=== PATIENT | female | born 1945 | race Hispanic/Latino ===

== ENCOUNTER 2019-02-14 17:00 | Inpatient (IN) | payer MEDICARE ==
--- NOTE | 2019-02-14 18:08 | C.PDOC ---
History Of Present Illness 73 y/o female presents to the ER complaining of worsening left facial redness and left ear pain since yesterday. Patient states that the redness started initially on left outer ear since yesterday. Patient reports that she had some m ild itching. She notes that she took Benadryl and Claritin last night. She states that she has increased redness on left face. She notes that she has increased swelling and fullness on face on top of ear. Denies having hearing changes, discharge, fever, chills, and trauma. <Raissa Hagan - Last Filed: 02/14/19 18:48> History Per: Patient History/Exam Limitations: no limitations Onset/Duration Of Symptoms: Days Current Symptoms Are (Timing): Still Present Severity: Moderate <Raissa Hagan - Last Filed: 02/14/19 18:48> <Enid Crockett - Last Filed: 02/14/19 22:12> Time Seen by Provider: 02/14/19 17:48 Chief Complaint (Nursing): Abnormal Skin Integrity Past Medical History Reviewed: Historical Data, Nursing Documentation, Vital Signs Vital Signs: Last Vital Signs Temp 100.1 F H 02/14/19 17:25 Pulse 81 02/14/19 17:25 Resp 20 02/14/19 17:25 BP 126/74 02/14/19 17:25 Pulse Ox 98 02/14/19 17:25 - Medical History PMH: No Chronic Diseases Surgical History: Appendectomy, Tonsillectomy Family History: States: No Known Family Hx - Social History Hx Alcohol Use: No Hx Substance Use: No <BentleyRiassa - Last Filed: 02/14/19 18:48> Vital Signs: Last Vital Signs Temp 98.6 F 02/14/19 21:34 Pulse 75 02/14/19 21:34 Resp 15 02/14/19 21:34 BP 154/68 H 02/14/19 21:34 Pulse Ox 96 02/14/19 21:34 <Enid Crockett - Last Filed: 02/14/19 22:12> Review Of Systems Except As Marked, All Systems Reviewed And Found Negative. Constitutional: Negative for: Fever, Chills ENT: Positive for: Other (left ear erythema) <Raissa Hagan - Last Filed: 02/14/19 18:48> Physical Exam - Physical Exam Appears: Non-toxic Skin: Warm, Dry Head: Normacephalic, Other (mild erythema and edema to left temporal and lateral maxillary area, mild edema, hot, blanching, no vesicles; no focal tenderness to mastoid area, no nodes, no angoioedema) Eye(s): bilateral: Normal Inspection Ear(s): Left: Other (mild erythema and edema in the externally behind ear onto mastoid area), Right: Normal Nose: Normal Oral Mucosa: Moist Throat: Normal, No Erythema, No Exudate Neck: Supple Chest: Symmetrical Cardiovascular: Rhythm Regular Respiratory: Normal Breath Sounds, No Rales, No Rhonchi, No Wheezing Neurological/Psych: Oriented x3, Normal Speech <Raissa Hagan - Last Filed: 02/14/19 18:48> ED Course And Treatment O2 Sat by Pulse Oximetry: 98 (RA) Pulse Ox Interpretation: Normal <Raissa Hagan - Last Filed: 02/14/19 18:48> - Laboratory Results Result Diagrams: 02/14/19 19:01 02/14/19 19:01 Lab Results: pO2 25 mm/Hg (30-55) L 02/14/19 18:30 VBG pH 7.35 (7.32-7.43) 02/14/19 18:30 VBG pCO2 36 mmHg (40-60) L 02/14/19 18:30 VBG HCO3 19.4 mmol/L 02/14/19 18:30 VBG Total CO2 21.0 mmol/L (22-28) L 02/14/19 18:30 VBG O2 Sat (Calc) 52.0 % (40-65) 02/14/19 18:30 VBG Base Excess -5.1 mmol/L (0.0-2.0) L 02/14/19 18:30 VBG Potassium 3.4 mmol/L (3.6-5.2) L 02/14/19 18:30 Sodium 132.0 mmol/l (132-148) 02/14/19 18:30 Chloride 102.0 mmol/L (98-107) 02/14/19 18:30 Glucose 211 mg/dl (65-105) H 02/14/19 18:30 Lactate 1.0 mmol/L (0.7-2.1) 02/14/19 18:30 FiO2 21.0 % 04/09/19 18:30 Total Bilirubin 0.5 mg/dL (0.2-1.3) 02/14/19 19:01 AST 27 U/L (14-36) 02/14/19 19:01 ALT 7 U/L (9-52) L 02/14/19 19:01 Alkaline Phosphatase 98 U/L (38-126) 02/14/19 19:01 Total Protein 7.7 g/dL (6.3-8.3) 02/14/19 19:01 Albumin 4.4 g/dL (3.5-5.0) 02/14/19 19: Globulin 3.2 gm/dL (2.2-3.9) 02/14/19 19: Albumin/Globulin Ratio 1.4 (1.0-2.1) 02/14/19 19:01 <Enid Crockett - Last Filed: 02/14/19 22:12> Disposition - Disposition Disposition Time: 19:00 <Raissa Hagan - Last Filed: 02/14/19 18:48> Discussed With : Alisha Macias Comment: accepted the pt onhis service and took over the care at 10:11 PM Doctor Will See Patient In The: Hospital Counseled Patient/Family Regarding: Studies Performed, Diagnosis - POA Present On Arrival: Poor Glycemic Control <Enid Crockett - Last Filed: 02/14/19 22:12> - Disposition Disposition: HOSPITALIZED Condition: FAIR Forms: [facility] (Vietnamese) - Clinical Impression Clinical Impression: Facial erythema, Diffuse cellulitis of face - Scribe Statement The provider has reviewed the documentation as recorded by the Steffi Johnston Provider Attestation: All medical record entries made by the Nahunibe were at my direction and personally dictated by me. I have reviewed the chart and agree that the record accurately reflects my personal performance of the history, physical exam, medical decision making, and the department course for this patient. I have also personally directed, reviewed, and agree with the discharge instructions and disposition. <Raissa Hagan - Last Filed: 02/14/19 18:48> Physician Patient Turnover Patient Signed Over To: Enid Crockett Handoff Comments: FU LABS, CT, DISPO <Raissa Hagan - Last Filed: 02/14/19 18:48> Decision To Admit <Raissa Hagan - Last Filed: 02/14/19 18:48> - Pt Status Changed To: Hospital Disposition Of: Inpatient - Admit Certification Admit to Inpatient:: After my assessment, the patient will require hospitalization for at least two midnights. This is because of the severity of symptoms shown, intensity of services needed, and/or the medical risk in this patient being treated as an outpatient. - InPatient: Physician Admission Certification: I certify that this patient requires 2 or more midnights of care for the following reason:: After my assessment, the patient will require hospitalization for at least two midnights. This is because of the severity of symptoms shown, intensity of services needed, and/or the medical risk in this patient being treated as an outpatient. - . Bed Request Type: Regular Admitting Physician: Alisha Macias <Enid Crockett - Last Filed: 02/14/19 22:12> - . Patient Diagnosis: Facial erythema, Diffuse cellulitis of face
[2019-02-14] MEDS ORDERED: MethylPREDNISolone 40 mg Vial IVP STA (18:20)
[2019-02-14] MEDS ORDERED: ceFAZolin IV 1 gm in Dextrose 1 GM/50 ML BAG IVPB STA (18:21)
[2019-02-14 18:34] LABS: VENOUS BLOOD GAS BASE EXCESS -5.1 mmol/L (0.0-2.0); VENOUS BLOOD GAS PCO2 36 mmHg (40-60); VENOUS BLOOD GAS PO2 25 mm/Hg (30-55); VENOUS BLOOD PH 7.35 (7.32-7.43)
[2019-02-14] MEDS ORDERED: ceFAZolin 1 gm in NS 1 GM/100 ML BAG IVPB ONE (18:49)
[2019-02-14] MEDS ORDERED: MethylPREDNISolone 40 mg Vial ONE (18:50)
[2019-02-14 19:05] LABS: BASO # 0.1 K/uL (0.0-0.2); BASO % 0.5 % (0.0-2.0); EOS % 0.1 % (0.0-4.0); LYMPH # 1.2 K/uL (1.0-4.3); LYMPH % 9.3 % (20.0-40.0); MEAN CELL VOLUME 89.2 fL (81.0-99.0); MEAN CORPUSCULAR HGB CONC 33.6 g/dL (33.0-37.0); MEAN PLATELET VOLUME 9.8 fL (7.2-11.7); MONO # 1.1 K/uL (0.0-0.8); MONO % 8.6 % (0.0-10.0); NEUT # 10.9 K/uL (1.8-7.0); NEUT % 81.5 % (50.0-75.0); PLATELET COUNT 270 K/uL (130-400); RBC 4.68 Mil/uL (3.80-5.20); RED CELL DISTRIBUTION WIDTH 13.4 % (11.5-14.5); WHITE BLOOD COUNT 13.4 K/uL (4.8-10.8)
[2019-02-14 19:19] LABS: ALB/GLOB RATIO 1.4 (1.0-2.1); ALBUMIN 4.4 g/dL (3.5-5.0); ALT/SGPT 7 U/L (9-52); AST/SGOT 27 U/L (14-36); BLOOD UREA NITROGEN 28 mg/dL (7-17); CALCIUM 9.6 mg/dl (8.6-10.4); GFR NON-AFRICAN AMERICAN > 60
[2019-02-14] MEDS ORDERED: Iodixanol 320 mg/ml 150 ml Bottle IV ONE (20:09)
[2019-02-14 21:39] LABS: BANDS 2 % (0-2); LYMPHOCYTE 16 % (20-40); MONOCYTE 10 % (0-10); NEUTROPHIL 72 % (50-75); PLATELET ESTIMATE NORMAL (NORMAL); TOTAL CELLS COUNTED 100
[2019-02-14] MEDS ORDERED: Vancomycin 1 GM 1 GM/250 ML BAG IVPB STA (21:57)
[2019-02-14] MEDS ORDERED: Vancomycin 1 GM 1 GM/250 ML BAG IVPB ONE (22:09)
--- NOTE | 2019-02-14 22:59 | CP.PCM.CON ---
History of Present Illness - History of Present Illness History of Present Illness: INFECTIOUS DISEASE; HPI: 73 y/o female presents to the ER complaining of worsening left facial redness and left ear pain since yesterday. Patient states that the redness started initially on left outer ear since yesterday. Patient reports that she had some mild itching. She notes that she took Benadryl and Claritin last night. She sta mireya that she has increased redness on left face. She notes that she has increased swelling and fullness on face on top of ear. Denies having hearing changes, discharge, fever, chills, and trauma. PMH: DM- 2, SCHIAZOAFFECTIVE DISORDER. Surgical History: Appendectomy, Tonsillectomy Family History: States: No Known Family Hx - Social History Hx Alcohol Use: No Hx Substance Use: No ALLERGY : CODEINE, PCN, THIOTHEXINE PT TOLERATED IV CEFAZOLIN IN ER. Review of Systems - Review of Systems All systems: reviewed and no additional remarkable complaints except ( PER HPI) - EENT Ears: As Per HPI, Other (LT EAR MILD ERYTHEMA PINNA ). absent: Decreased Hearing, Ear Discharge, Ear Pain, Abnormal Hearing, Dizziness Nose/Mouth/Throat: absent: Sinus Pain (LT FACIAL AND FOREHEAD ERYTHEMA. NO FURUNCULOSIS /OR ULCERS), Dental Pain, Dysphagia, Mouth Lesions, Mouth Pain, Sore Throat, Throat Swelling, Facial Pain - Cardiovascular Cardiovascular: absent: Dyspnea - Respiratory Respiratory: absent: Cough, Dyspnea - Gastrointestinal Gastrointestinal: absent: Abdominal Pain, Diarrhea, Nausea, Vomiting - Genitourinary Genitourinary: absent: Freq UTI - Hematologic/Lymphatic Hematologic: As Per HPI. absent: Easy Bleeding, Easy Bruising, Lymphadenopathy Past Patient History - Past Social History Smoking Status: Never Smoked - ENDOCRINE/METABOLIC Hx Endocrine Disorders: Yes Hx Diabetes Mellitus Type 2: Yes - PSYCHIATRIC Hx Substance Use: No - SURGICAL HISTORY Hx Appendectomy: Yes Hx Tonsillectomy: Yes Meds Allergies/Adverse Reactions: Allergies Allergy/AdvReac Type Severity Reaction Status Date / Time codeine Allergy Unknown UNKNOWN Verified 02/14/19 22:03 Penicillins Allergy Unknown UNKNOWN Verified 05/28/16 10:01 thiothixene [From Navane] Allergy Unknown UNKNOWN Verified 05/28/16 10:05 thiothixene HCl [From Navane] Allergy Unknown UNKNOWN Verified 05/28/16 10:05 - Medications Medications: Current Medications Vancomycin HCl (Vancomycin 1gm In Normal Saline Addvantage) 1 gm in 250 mls @ 166.667 mls/hr IVPB STAT STA; Protocol Stop: 02/14/19 23:26 Last Admin: 02/14/19 22:20 Dose: 166.667 mls/hr Ceftriaxone Sodium 1 gm/ (Sodium Chloride) 100 mls @ 100 mls/hr IVPB Q12H DEMOND; Protocol Vancomycin HCl 1 gm/ Sodium (Chloride) 250 mls @ 166.7 mls/hr IVPB Q24H DEMOND; Protocol Insulin Human Regular (Novolin R) 0 unit SC ACHS DEMOND; Protocol Physical Exam - Head Exam Head Exam: NORMAL INSPECTION - Eye Exam Eye Exam: EOMI, PERRL - ENT Exam ENT Exam: Normal Oropharynx, TM's Normal Bilaterally (SOME ERYTHEMA LT EAR PINN A/ LT FACIAL ERYTHEMA/AND CELLULITIS) - Neck Exam Neck exam: Positive for: Normal Inspection - Respiratory Exam Respiratory Exam: Clear to Auscultation Bilateral, NORMAL BREATHING PATTERN - Cardiovascular Exam Cardiovascular Exam: REGULAR RHYTHM, +S1, +S2 - GI/Abdominal Exam GI & Abdominal Exam: Normal Bowel Sounds, Soft. absent: Tenderness - Extremities Exam Extremities exam: Positive for: pedal pulses present. Negative for: calf tenderness, pedal edema, tenderness Results - Vital Signs Recent Vital Signs: Last Vital Signs Temp 98.6 F 02/14/19 21:34 Pulse 75 02/14/19 21:34 Resp 15 02/14/19 21:34 BP 154/68 H 02/14/19 21:34 Pulse Ox 96 02/14/19 21:34 - Labs Result Diagrams: 02/15/19 07:32 02/15/19 07:32 Labs: Laboratory Results - last 24 hr 02/14/19 02/14/19 02/14/19 18:30 19:01 19:01 WBC 13.4 H RBC 4.68 Hgb 14.0 Hct 41.7 MCV 89.2 MCH 30.0 MCHC 33.6 RDW 13.4 Plt Count 270 MPV 9.8 Neut % (Auto) 81.5 H Lymph % (Auto) 9.3 L [place] % (Auto) 8.6 Eos % (Auto) 0.1 Baso % (Auto) 0.5 Neut # (Auto) 10.9 H Lymph # (Auto) 1.2 [place] # (Auto) 1.1 H Eos # (Auto) 0.0 Baso # (Auto) 0.1 Neutrophils % (Manual) 72 Band Neutrophils % 2 Lymphocytes % (Manual) 16 L Monocytes % (Manual) 10 Platelet Estimate Normal pO2 25 L VBG pH 7.35 VBG pCO2 36 L VBG HCO3 19.4 VBG Total CO2 21.0 L VBG O2 Sat (Calc) 52.0 VBG Base Excess -5.1 L VBG Potassium 3.4 L Sodium 132.0 130 L Chloride 102.0 93 L Glucose 211 H Lactate 1.0 FiO2 21.0 Potassium 5.0 Carbon Dioxide 26 Anion Gap 16 BUN 28 H Creatinine 0.8 Est GFR ( Amer) > 60 Est GFR (Non-Af Amer) > 60 Random Glucose 270 H D Calcium 9.6 Total Bilirubin 0.5 AST 27 ALT 7 L Alkaline Phosphatase 98 Total Protein 7.7 Albumin 4.4 Globulin 3.2 Albumin/Globulin Ratio 1.4 Venous Blood Potassium 3.4 L - Imaging and Cardiology ct orbits/fascial w/contrast Status: Report reviewed by me Assessment & Plan (1) Diffuse cellulitis of face Assessment and Plan: PANCULTURE. MRSA SCREEN. Patient tolerated dose of cefazolin in the ER. Also got one dose of vancomycin 1 g in the ER. Doubt patient has any allergy to penicillin/cephalosporins Patient states he developed ? allergy to erythromycin once the swelling of her hand only. discussed with the staff. Continue IV vancomycin 1 g once a day daily. 02/14/19. Start IV Rocephin 1 g every 12 hourly-first dose at 6 AM in the morning. asked staff nurse to monitor for any rashes or any other pruritus secondary to ANCEF DOSE . FOLLOW-UP CULTURES TO ADJUST ANTIBIOTICS. Status: Acute (2) Facial erythema Assessment and Plan: WILL REVIEW THE OFFICIAL REPORT ct ORBITS AND FACIAL W/ CONTRAST. Status: Acute (3) DM (diabetes mellitus) Assessment and Plan: PT ON JARDIANCE 25 MG BY MOUTH ONCE DAILY AT HOME PT ALSO ON GLIPIZIDE 10 MG BY MOUTH TWICE A DAY. Status: Acute (4) Schizoaffective disorder Assessment and Plan: PATIENT ON INVEGA 1.5MG OD . Status: Acute
--- NOTE | 2019-02-14 23:08 | CP.PCM.HP ---
History of Present Illness - History of Present Illness History of Present Illness: COMPREHENSIVE CONSULT HPI Patient presented to [facility] emergency room with swelling of the left side of the face. Patient is not completely aware of how it started but apparently there was a small swelling near the left posterior ear which started spreading with some itching and discomfort patient took some Claritin and Benadryl without any improvement and on the day of admission the swelling spread to the left maxillary and left orbital region nonhealing wound in the eyes. There is no history of trauma or any cuts there is no any insect bites or animal bites Patient with history of psych disorder and history of diabetes PAST HIST. PERSONAL HIST: Smoking. N Alcohol. N Allergy N Travel_- . FAMILY HIST : ROS : Constitutional: Negative for weight change, chills, night sweats, fatigue and usage of assist device. Eyes: Negative for redness, swelling, itching, discharge, vision changes, blurry vision, double vision, glaucoma, cataracts, Ears: Negative for hearing loss, ringing, , tinnitus, vertigo Nose: Negative for rhinorrhea, stuffiness, sniffing, itching, postnasal drip, discoloration, nasal congestion and epistaxis. Throat: Negative for throat clearing, sore throat, hoarseness, difficulty swallowing and difficulty speaking. Respiratory: Negative for cough, , sputum production, chest tightness, wheezing, pleuritic chest pain ,daytime somnolence, chronic cough, hemoptysis, snoring at night, Cardiovascular: Negative for chest pain, palpitations, orthopnea, PND, Edema of legs, leg cramps, angina, claudication, , irregular heartbeat, Neurology: Negative for irritability, muscle weakness, numbness and tingling, seizures, tremors, migraines, slurred speech, syncope, memory loss, mood changes, recurrent headaches Gastrointestinal: Negative for difficulty swallowing, diarrhea, constipation, black stools, rectal bleeding, nausea, flatulence, reflux, poor appetite, changes in bowel habits, abdominal pain Genitourinary: Negative for frequent urination, hematuria, discharge, incontinence, urinary retention, frequent UTI, Psychiatric: Negative for depression, anxiety/panic, suicidal tendencies, Musculoskeletal: Negative for swollen joints, back pain, , neck pain, morning stiffness of joints, . Skin: Negative for rash, ulcers, itching, dry skin and pigmented lesions. P/E: Constitutional: Appears stated age and in no apparent distress. Head: Normocephalic. There is swelling of the subcutaneous tissue with erythema and cellulitis on the left supraorbital region in the left maxillary region Ears: There is erythema and swelling of the subcutaneous tissue from the back part of the left ear from mastoid extending all the way to the external ear. Auditory canals are swollen and cannot be evaluated in the right ear with n ormal. Eyes: Pupils are central, bilaterally equal, symmetrical and reacts to light with normal movements and no icterus or pallor. Nose: External nares are patent. Mucosa is pink Mouth-Throat: Good general appearance and condition. No post-pharyngeal/oropharyngeal erythema and tonsillar hypertrophy. Good dental hygiene. Neck-Lymphatic: Neck is supple with normal ROM, no thyromegaly, lymph nodes or masses. JVD is normal with no carotid bruit. Lungs: Clear to percussion and auscultation with bilateral normal air entry. Cardiovascular: S1 and S2 are normal with no murmurs, gallops and rub. GI Exam: No hepatomegaly. Abdomen is soft and non-tender. No Organomegaly , masses or hernias are evident and bowel sounds are normal and active. Neurology: Higher function and all cranial nerves intact, with no gross motor or sensory deficit. Superficial and deep reflexes are normal with downwards planters. No cerebellar deficit with normal gait. Musculoskeletal: No tender spots with normal curvature of the spine with no swelling or restricted ROM of the small and large joints. Extremities: Homans sign absent. Intact pulses with no pitting edema, calf tenderness or skin color changes. Skin: No rash, eruptions or abnormal skin pigmentation LAB/RADIOLOGY: ASSESMENT : Cellulitis of the left side of the face etiology unclear Type 2 diabetes PLAN: IV antibiotics Monitor renal function Present on Admission - Present on Admission Any Indicators Present on Admission: No Past Patient History - Past Social History Smoking Status: Never Smoked - ENDOCRINE/METABOLIC Hx Endocrine Disorders: Yes Hx Diabetes Mellitus Type 2: Yes - PSYCHIATRIC Hx Substance Use: No - SURGICAL HISTORY Hx Appendectomy: Yes Hx Tonsillectomy: Yes Meds Allergies/Adverse Reactions: Allergies Allergy/AdvReac Type Severity Reaction Status Date / Time codeine Allergy Unknown UNKNOWN Verified 02/14/19 22:03 Penicillins Allergy Unknown UNKNOWN Verified 05/28/16 10:01 thiothixene [From Navane] Allergy Unknown UNKNOWN Verified 05/28/16 10:05 thiothixene HCl [From Navane] Allergy Unknown UNKNOWN Verified 05/28/16 10:05 Results - Vital Signs Recent Vital Signs: Last Vital Signs Temp 99.7 F H 02/14/19 23:01 Pulse 68 02/14/19 23:01 Resp 18 02/14/19 23:01 BP 131/56 L 02/14/19 23:01 Pulse Ox 95 02/14/19 23:01 - Labs Result Diagrams: 02/15/19 07:32 02/15/19 07:32 Labs: Laboratory Results - last 24 hr 02/14/19 02/14/19 02/14/19 18:30 19:01 19:01 WBC 13.4 H RBC 4.68 Hgb 14.0 Hct 41.7 MCV 89.2 MCH 30.0 MCHC 33.6 RDW 13.4 Plt Count 270 MPV 9.8 Neut % (Auto) 81.5 H Lymph % (Auto) 9.3 L [place] % (Auto) 8.6 Eos % (Auto) 0.1 Baso % (Auto) 0.5 Neut # (Auto) 10.9 H Lymph # (Auto) 1.2 [place] # (Auto) 1.1 H Eos # (Auto) 0.0 Baso # (Auto) 0.1 Neutrophils % (Manual) 72 Band Neutrophils % 2 Lymphocytes % (Manual) 16 L Monocytes % (Manual) 10 Platelet Estimate Normal pO2 25 L VBG pH 7.35 VBG pCO2 36 L VBG HCO3 19.4 VBG Total CO2 21.0 L VBG O2 Sat (Calc) 52.0 VBG Base Excess -5.1 L VBG Potassium 3.4 L Sodium 132.0 130 L Chloride 102.0 93 L Glucose 211 H Lactate 1.0 FiO2 21.0 Potassium 5.0 Carbon Dioxide 26 Anion Gap 16 BUN 28 H Creatinine 0.8 Est GFR ( Amer) > 60 Est GFR (Non-Af Amer) > 60 Random Glucose 270 H D Calcium 9.6 Total Bilirubin 0.5 AST 27 ALT 7 L Alkaline Phosphatase 98 Total Protein 7.7 Albumin 4.4 Globulin 3.2 Albumin/Globulin Ratio 1.4 Venous Blood Potassium 3.4 L
[2019-02-14 23:35] VITALS: RESP 20
[2019-02-15 07:42] LABS: BASO % 0.1 % (0.0-2.0); HEMOGLOBIN 13.5 g/dL (11.0-16.0); LYMPH # 0.7 K/uL (1.0-4.3); LYMPH % 5.6 % (20.0-40.0); MEAN CELL VOLUME 89.4 fL (81.0-99.0); MEAN CORPUSCULAR HEMOGLOBIN 30.8 pg (27.0-31.0); MEAN CORPUSCULAR HGB CONC 34.5 g/dL (33.0-37.0); MEAN PLATELET VOLUME 9.4 fL (7.2-11.7); MONO # 0.6 K/uL (0.0-0.8); MONO % 4.8 % (0.0-10.0); NEUT # 10.7 K/uL (1.8-7.0); NEUT % 89.5 % (50.0-75.0); PLATELET COUNT 273 K/uL (130-400); RBC 4.39 Mil/uL (3.80-5.20); RED CELL DISTRIBUTION WIDTH 13.1 % (11.5-14.5)
[2019-02-15 08:02] LABS: ALB/GLOB RATIO 1.3 (1.0-2.1); ALT/SGPT 10 U/L (9-52); AST/SGOT 19 U/L (14-36); BILIRUBIN,DIRECT 0.3 mg/dL (0.0-0.4); BLOOD UREA NITROGEN 30 mg/dL (7-17); CALCIUM 9.2 mg/dl (8.6-10.4); GFR NON-AFRICAN AMERICAN > 60
[2019-02-15] MEDS: (Novolin R) Insulin Human Regular 100 units/ml vial SC SCH ×5 (08:13→21:15)
[2019-02-15 08:51] LABS: LYMPHOCYTE 3 % (20-40); MONOCYTE 8 % (0-10); NEUTROPHIL 89 % (50-75); PLATELET ESTIMATE NORMAL (NORMAL); TOTAL CELLS COUNTED 100
--- NOTE | 2019-02-15 12:19 | CP.PCM.PN ---
Subjective - Date & Time of Evaluation Date of Evaluation: 02/15/19 Time of Evaluation: 12:17 - Subjective Subjective: Patient has less pain and discomfort on the left side of the face Vital signs are stable afebrile Swelling of the left orbital and maxillary area and the left ear appears to be resolving but significant swelling. Eyes, nose and throat is normal Lungs are clear Heart S1-S2 normal Diabetes with cellulitis of the left face on IV antibiotics. Objective - Vital Signs/Intake and Output Vital Signs (last 24 hours): Temp Pulse Resp BP Pulse Ox 97.7 F 81 20 126/64 95 02/15/19 07:32 02/15/19 07:32 02/15/19 07:32 02/15/19 07:32 02/15/19 07:32 Intake and Output: 02/15/19 02/15/19 11:59 23:59 Intake Total 500 Balance 500 - Medications Medications: Current Medications Glipizide (Glucotrol) 10 mg PO DAILY DEMOND Last Admin: 02/15/19 10:45 Dose: 10 mg Heparin Sodium (Porcine) (Heparin) 5,000 units SC Q12 DEMOND Last Admin: 02/15/19 09:56 Dose: Not Given Ceftriaxone Sodium 1 gm/ (Sodium Chloride) 100 mls @ 100 mls/hr IVPB Q12H DEMOND; Protocol Last Admin: 02/15/19 05:30 Dose: 100 mls/hr Vancomycin HCl 1 gm/ Sodium (Chloride) 250 mls @ 166.7 mls/hr IVPB Q24H DEMOND; Protocol Insulin Human Regular (Novolin R) 0 unit SC ACHS DEMOND; Protocol Last Admin: 02/15/19 08:13 Dose: 8 unit Pneumococcal Polyvalent Vaccine (Pneumovax 23 Vaccine) 0.5 ml IM .ONCE ONE Stop: 02/16/19 10:01 - Labs Labs: 02/15/19 07:32 02/15/19 07:32
--- NOTE | 2019-02-15 13:17 | CT ---
Date of service: 02/14/2019 PROCEDURE: CT ORBITS WITH CONTRAST. HISTORY: l facial redness, swell COMPARISON: None available. TECHNIQUE: Following administration of intravenous iodinated contrast, axial CT images of the orbits were obtained. Coronal and sagittal reformats were generated. Intravenous contrast dose: Visipaque 320, 100 cc Radiation dose: Total exam DLP = 836.07 mGy-cm. This CT exam was performed using one or more of the following dose reduction techniques: Automated exposure control, adjustment of the mA and/or kV according to patient size, and/or use of iterative reconstruction technique. FINDINGS: RIGHT ORBIT: RIGHT BONY ORBIT: Normal. RIGHT INTRAORBITAL STRUCTURES: Globe: Normal. Extraocular muscles: Normal. Post septal space: Normal. Optic Nerve: Normal. Lacrimal Apparatus: Normal. RIGHT PRESEPTAL SOFT TISSUES: Normal. LEFT ORBIT: LEFT BONY ORBIT: Normal. LEFT INTRAORBITAL STRUCTURES: Globe: Normal. Extraocular muscles: Normal. Post septal space: Normal. Optic Nerve: Normal. Lacrimal Apparatus: Normal. LEFT PRESEPTAL SOFT TISSUES: Normal. OTHER: Left periparotid and superolateral subcutaneous reaction without abscess or emphysematous change partially captured in this CT exam of the orbits. The visualized superficial and deep parotid gland sub segments appear free of mass or cyst. Remaining facial soft tissue is unremarkable as imaged. IMPRESSION: Limited left lateral facial cellulitis, potentially related to parotitis though this is not definitive. No defined abscess appreciated. No evidence to suggest orbital cellulitis. Concordant preliminary report from Radha, 02/14/2019, 9:39 p.m..
[2019-02-15] MEDS ORDERED: PALIPERIDONE 1.5 MG PO SCH (15:00)
--- NOTE | 2019-02-15 16:38 | CP.PCM.PN ---
Subjective - Date & Time of Evaluation Date of Evaluation: 02/15/19 Time of Evaluation: 16:37 - Subjective Subjective: AFEBRILE, IMPROVING FACIAL CELLULITIS. dENIES ANY EAR PAIN OR HEADACHE. CT OF THE ORBIT/FACIAL WITH CONTRAST REVIEWED LIMITED LEFT FACIAL CELLULITIS WITH NO ABSCESS, NO ORBITAL CELLULITIS.( see full report ) LAB. REVIEWED. WBC 12.3 bLOOD CULTURES 02/14/19 -VE FOR 24 HOURS. Objective - Vital Signs/Intake and Output Vital Signs (last 24 hours): Temp Pulse Resp BP Pulse Ox 97.5 F L 68 20 168/72 H 99 02/15/19 16:19 02/15/19 16:19 02/15/19 16:19 02/15/19 16:19 02/15/19 16:19 Intake and Output: 02/15/19 02/15/19 06:59 18:59 Intake Total 500 300 Balance 500 300 - Medications Medications: Current Medications Glipizide (Glucotrol) 10 mg PO DAILY [facility] Last Admin: 02/15/19 10:45 Dose: 10 mg Heparin Sodium (Porcine) (Heparin) 5,000 units SC Q12 [facility] Last Admin: 02/15/19 09:56 Dose: Not Given Home Med (Patient's Own Medication) 1 tab PO HS [facility] Home Med (Patient's Own Medication) 1 tab PO DAILY [facility] Ceftriaxone Sodium 1 gm/ (Sodium Chloride) 100 mls @ 100 mls/hr IVPB Q12H [facility]; Protocol Last Admin: 02/15/19 05:30 Dose: 100 mls/hr Vancomycin HCl 1 gm/ Sodium (Chloride) 250 mls @ 166.7 mls/hr IVPB Q24H [facility]; Protocol Insulin Human Regular (Novolin R) 0 unit SC ACHS [facility]; Protocol Last Admin: 02/15/19 14:37 Dose: Not Given Pneumococcal Polyvalent Vaccine (Pneumovax 23 Vaccine) 0.5 ml IM .ONCE ONE Stop: 02/16/19 10:01 - Labs Labs: 02/15/19 07:32 02/15/19 07:32 - Constitutional Appears: No Acute Distress - Head Exam Head Exam: NORMAL INSPECTION - Eye Exam Eye Exam: EOMI, PERRL - ENT Exam ENT Exam: Normal Oropharynx - Neck Exam Neck Exam: Normal Inspection. absent: Meningismus - Respiratory Exam Respiratory Exam: Clear to Ausculation Bilateral, NORMAL BREATHING PATTERN - Cardiovascular Exam Cardiovascular Exam: REGULAR RHYTHM, +S1, +S2 - GI/Abdominal Exam GI & Abdominal Exam: Soft, Normal Bowel Sounds - Extremities Exam Extremities Exam: Normal Capillary Refill. absent: Calf Tenderness, Pedal Edema - Neurological Exam Neurological Exam: Alert, Awake, CN II-XII Intact, Oriented x3 - Psychiatric Exam Psychiatric exam: Normal Mood - Skin Skin Exam: Normal Color, Rash, Warm - Additional Findings Additional findings: LT. FACIAL CELLULITIS IMPROVING. ALSO LEFT PINNA ERYTHEMA AND DECREASED. Assessment and Plan (1) Diffuse cellulitis of face Status: Acute (2) Facial erythema Status: Acute (3) DM (diabetes mellitus) Status: Acute (4) Schizoaffective disorder Status: Acute - Assessment and Plan (Free Text) Plan: PLAN PATIENT MOST LIKELY HAS ERYSIPELAS FACE /WITH DIABETES MELLITUS CONTINUE PRESENT MANAGEMENT WITH iv ANTIBIOTICS. PATIENT TOLERATING iv rOCEPHIN WITH NO REACTIONS.. pATIENT DOES NOT HAVE ALLERGY TO PENICILLIN OR CEPHALOSPORINS PER DISCUSSION. F/U CULTURES TO ADJUST ANTIBIOTICS.
[2019-02-15] MEDS: GlipiZIDE 10 mg SR Tab PO SCH (18:24)
[2019-02-15] MEDS: JARDIANCE 25 MG PO SCH (21:05)
[2019-02-16 06:36] LABS: BASO # 0.1 K/uL (0.0-0.2); BASO % 0.6 % (0.0-2.0); EOS # 0.2 K/uL (0.0-0.7); EOS % 1.7 % (0.0-4.0); HEMOGLOBIN 12.4 g/dL (11.0-16.0); LYMPH # 2.8 K/uL (1.0-4.3); LYMPH % 25.8 % (20.0-40.0); MEAN CELL VOLUME 88.5 fL (81.0-99.0); MEAN CORPUSCULAR HEMOGLOBIN 30.2 pg (27.0-31.0); MEAN CORPUSCULAR HGB CONC 34.1 g/dL (33.0-37.0); MEAN PLATELET VOLUME 9.6 fL (7.2-11.7); MONO # 1.4 K/uL (0.0-0.8); MONO % 12.6 % (0.0-10.0); NEUT # 6.4 K/uL (1.8-7.0); NEUT % 59.3 % (50.0-75.0); NRBC % 0.1 % (0.0-2.0); RBC 4.1 Mil/uL (3.80-5.20); WHITE BLOOD COUNT 10.8 K/uL (4.8-10.8)
[2019-02-16 06:42] LABS: ALB/GLOB RATIO 1.3 (1.0-2.1); ALBUMIN 3.7 g/dL (3.5-5.0); ALT/SGPT 20 U/L (9-52); AST/SGOT 22 U/L (14-36); BLOOD UREA NITROGEN 32 mg/dL (7-17); CALCIUM 9.2 mg/dl (8.6-10.4); GFR NON-AFRICAN AMERICAN > 60
[2019-02-16] MEDS: (Novolin R) Insulin Human Regular 100 units/ml vial SC SCH ×5 (07:51→21:31)
[2019-02-16 08:15] VITALS: O2SAT 98
[2019-02-16] MEDS ORDERED: Vancomycin 1 gm/NS 200 ml 1 GM/200 ML BAG IVPB SCH ×2 (09:30→23:00)
[2019-02-16] MEDS: GlipiZIDE 10 mg SR Tab PO SCH ×2 (09:41→17:22)
[2019-02-16] MEDS: PALIPERIDONE 1.5 MG PO SCH (09:44)
[2019-02-16] MEDS ORDERED: Pneumococcal 23-Valent Vaccine IM ONE (10:00)
--- NOTE | 2019-02-16 12:45 | CP.PCM.PN ---
Subjective - Date & Time of Evaluation Date of Evaluation: 02/16/19 Time of Evaluation: 12:44 - Subjective Subjective: Patient has less pain and discomfort on the left side of the face Vital signs are stable afebrile Swelling of the left orbital and maxillary area and the left ear appears to be resolving but significant swelling. Eyes, nose and throat is normal Lungs are clear Heart S1-S2 normal Diabetes with cellulitis of the left face on IV antibiotics. Objective - Vital Signs/Intake and Output Vital Signs (last 24 hours): Temp Pulse Resp BP Pulse Ox 98.6 F 68 20 129/63 98 02/16/19 07:00 02/16/19 07:00 02/16/19 07:00 02/16/19 07:00 02/16/19 07:00 Intake and Output: 02/16/19 02/16/19 11:59 23:59 Intake Total 400 Balance 400 - Medications Medications: Current Medications Glipizide (Glucotrol Xl) 10 mg PO BID [facility] Last Admin: 02/16/19 09:41 Dose: 10 mg Heparin Sodium (Porcine) (Heparin) 5,000 units SC Q12 [facility] Last Admin: 02/16/19 09:41 Dose: Not Given Home Med (Patient's Own Medication) 1 tab PO HS [facility] Last Admin: 02/15/19 21:05 Dose: 1 tab Home Med (Patient's Own Medication) 1 tab PO DAILY [facility] Last Admin: 02/16/19 09:44 Dose: 1 tab Ceftriaxone Sodium 1 gm/ (Sodium Chloride) 100 mls @ 100 mls/hr IVPB Q12H [facility]; Protocol Last Admin: 02/16/19 05:12 Dose: 100 mls/hr Vancomycin/Sodium Chloride (Vancomycin 1 Gm/Ns 200 Ml) 1 gm in 200 mls @ 166.7 mls/hr IVPB Q24H [facility]; Protocol Stop: 02/20/19 23:01 Insulin Human Regular (Novolin R) 0 unit SC ACHS [facility]; Protocol Last Admin: 02/16/19 11:31 Dose: 10 unit - Labs Labs: 02/16/19 06:23 02/16/19 06:23
[2019-02-16] MEDS: JARDIANCE 25 MG PO SCH (21:26)
--- NOTE | 2019-02-16 23:20 | CP.PCM.PN ---
Subjective - Date & Time of Evaluation Date of Evaluation: 02/16/19 Time of Evaluation: 23:20 - Subjective Subjective: AFEBRILE, +VE COUGH/URT CONGESTION IMPROVING FACIAL CELLULITIS. LT PINNACELLULITIS IMPROVING . LT EAR PAIN IMPROVING. NO DISCHARGE LT EAR CT OF THE ORBIT/FACIAL WITH CONTRAST REVIEWED LABS REVIEWED Objective - Vital Signs/Intake and Output Vital Signs (last 24 hours): Temp Pulse Resp BP Pulse Ox 98.1 F 71 20 114/66 98 02/16/19 15:38 02/16/19 15:38 02/16/19 15:38 02/16/19 15:38 02/16/19 15:38 Intake and Output: 02/16/19 02/17/19 18:59 06:59 Intake Total 300 Balance 300 - Medications Medications: Current Medications Glipizide (Glucotrol Xl) 10 mg PO BID [facility] Last Admin: 02/16/19 17:22 Dose: 10 mg Heparin Sodium (Porcine) (Heparin) 5,000 units SC Q12 [facility] Last Admin: 02/16/19 21:58 Dose: Not Given Home Med (Patient's Own Medication) 1 tab PO HS [facility] Last Admin: 02/16/19 21:26 Dose: 1 tab Home Med (Patient's Own Medication) 1 tab PO DAILY [facility] Last Admin: 02/16/19 09:44 Dose: 1 tab Ceftriaxone Sodium 1 gm/ (Sodium Chloride) 100 mls @ 100 mls/hr IVPB Q12H [facility]; Protocol Last Admin: 02/16/19 17:21 Dose: 100 mls/hr Vancomycin/Sodium Chloride (Vancomycin 1 Gm/Ns 200 Ml) 1 gm in 200 mls @ 166.7 mls/hr IVPB Q24H [facility]; Protocol Stop: 02/20/19 23:01 Last Admin: 02/16/19 22:05 Dose: 166.7 mls/hr Insulin Human Regular (Novolin R) 0 unit SC ACHS [facility]; Protocol Last Admin: 02/16/19 21:31 Dose: Not Given - Labs Labs: 02/16/19 06:23 02/16/19 06:23 - Constitutional Appears: No Acute Distress - Head Exam Head Exam: NORMAL INSPECTION - Eye Exam Eye Exam: EOMI - ENT Exam ENT Exam: Normal Exam, Normal External Ear Exam, Normal Oropharynx Additional comments: LT EAR PINNA IMPROVING CELLULITIS LT ORBITAL AND LT FASCIAL CELLULIS IMPROVING - Neck Exam Neck Exam: absent: Lymphadenopathy - Respiratory Exam Respiratory Exam: Rhonchi, NORMAL BREATHING PATTERN - Cardiovascular Exam Cardiovascular Exam: REGULAR RHYTHM, +S1, +S2 - GI/Abdominal Exam GI & Abdominal Exam: Soft, Normal Bowel Sounds - Extremities Exam Extremities Exam: absent: Calf Tenderness, Pedal Edema - Neurological Exam Neurological Exam: Alert, Awake, CN II-XII Intact, Normal Gait, Reflexes Normal - Psychiatric Exam Psychiatric exam: Normal Mood - Skin Skin Exam: Normal Color, Warm Assessment and Plan (1) Diffuse cellulitis of face Status: Acute (2) Facial erythema Status: Acute (3) DM (diabetes mellitus) Status: Acute (4) Schizoaffective disorder Status: Acute - Assessment and Plan (Free Text) Plan: CONTINUE PRESENT MANAGEMENT WITH iv ANTIBIOTICS. PATIENT TOLERATING iv rOCEPHIN WITH NO REACTIONS.. pATIENT DOES NOT HAVE ALLERGY TO PENICILLIN OR CEPHALOSPORINS PER DISCUSSION. F/U CULTURES TO ADJUST ANTIBIOTICS. WILL ALSO GET CT SINUSES R/O SINUSITIS CXR -PA/LATERAL R/O PNEUMONIA PT CONGESTED AND STATES IT ALL STARTED WITH LT EAR PAIN. PT ALSO DIABETIC
[2019-02-17 07:49] VITALS: BP 136/65; PULSE 70; TEMP 98.5
[2019-02-17 07:54] LABS: BASO # 0.1 K/uL (0.0-0.2); BASO % 1.1 % (0.0-2.0); EOS # 0.3 K/uL (0.0-0.7); EOS % 3.4 % (0.0-4.0); HEMOGLOBIN 13.7 g/dL (11.0-16.0); LYMPH # 2.6 K/uL (1.0-4.3); LYMPH % 34.3 % (20.0-40.0); MEAN CELL VOLUME 89.4 fL (81.0-99.0); MEAN CORPUSCULAR HEMOGLOBIN 30.3 pg (27.0-31.0); MEAN CORPUSCULAR HGB CONC 33.8 g/dL (33.0-37.0); MEAN PLATELET VOLUME 9.1 fL (7.2-11.7); MONO % 13.2 % (0.0-10.0); NEUT # 3.7 K/uL (1.8-7.0); RBC 4.53 Mil/uL (3.80-5.20); RED CELL DISTRIBUTION WIDTH 13.6 % (11.5-14.5); WHITE BLOOD COUNT 7.6 K/uL (4.8-10.8)
[2019-02-17 08:05] LABS: BLOOD UREA NITROGEN 28 mg/dL (7-17); CALCIUM 9.3 mg/dl (8.6-10.4); GFR NON-AFRICAN AMERICAN > 60
[2019-02-17] MEDS: GlipiZIDE 10 mg SR Tab PO SCH (10:05)
[2019-02-17] MEDS: (Novolin R) Insulin Human Regular 100 units/ml vial SC SCH ×2 (10:06→12:16)
[2019-02-17] MEDS: PALIPERIDONE 1.5 MG PO SCH (10:08)
--- NOTE | 2019-02-17 11:26 | RAD ---
Date of service: 02/17/2019 HISTORY: Cough COMPARISON: No prior. TECHNIQUE: Chest PA and lateral FINDINGS: LINES AND TUBES: None. LUNG AND PLEURA: The lungs are well inflated and clear. There is mild pulmonary venous congestion no focal consolidation no pleural effusion or pneumothorax. HEART AND MEDIASTINUM: The heart is not enlarged. No aortic atherosclerotic calcifications present. The hilar and mediastinal contours are within normal limits. SKELETAL STRUCTURES: The bony structures are within normal limits for the patient's age. VISUALIZED UPPER ABDOMEN: Normal. OTHER FINDINGS: None. IMPRESSION: No active pulmonary disease.
--- NOTE | 2019-02-17 11:53 | CT ---
Date of service: 02/17/2019 PROCEDURE: CT SINUSES WITHOUT CONTRAST HISTORY: Rule out sinusitis; left ear pain and facial cellulitis COMPARISON: Comparison made with CT scan the orbits 02/14/2019. TECHNIQUE: Contiguous axial CT images of the paranasal sinuses were obtained. Coronal and sagittal reformats were generated. Radiation dose: Total exam DLP = 526.89 mGy-cm. This CT exam was performed using one or more of the following dose reduction techniques: Automated exposure control, adjustment of the mA and/or kV according to patient size, and/or use of iterative reconstruction technique. FINDINGS: FRONTAL SINUSES: Clear. ETHMOID SINUSES: Clear. SPHENOID SINUSES: Clear. MAXILLARY SINUSES: Clear. SINUS DRAINAGE: Osteomeatal complexes, frontal recesses and sphenoethmoid recesses clear. NASAL SEPTUM: No significant deviation. No destructive lesion. MASS: None. SKULL BASE: Unremarkable. TEMPORAL BONES: Middle ears and mastoid grossly unremarkable. OTHER FINDINGS: Residual but improved nonspecific infiltration changes in the subcutaneous tissues adjacent to the left parotid gland extending anteriorly over facial soft tissues left zygomatic arch. Findings most likely represent a cellulitis. No drainable fluid or abscess collections seen at this time. No evidence of parotid collections or masses identified. IMPRESSION: Residual but improved nonspecific infiltration left-sided facial subcutaneous tissues consistent with a cellulitis. No drainable fluid or abscess collections seen at this time. No evidence of parotid masses or collections identified. Bilateral cataract surgery.
--- NOTE | 2019-02-17 14:04 | CP.PCM.DIS ---
Provider - Provider Date of Admission: 02/14/19 22:10 Attending physician: Alisha Macias MD Consults: 02/14/19 22:33 Infectious Disease Consult Stat Comment: Consulting Provider: Stephanie Montes Consulting Physician: Stephanie Montes Reason for Consult: Facial cellulitis Time Spent in preparation of Discharge (in minutes): 35 Hospital Course - Lab Results Lab Results: Micro Results 02/14/19 22:04 Blood Blood Culture - Preliminary NO GROWTH AFTER 48 HOURS 02/14/19 19:00 Blood Blood Culture - Preliminary NO GROWTH AFTER 48 HOURS Most Recent Lab Values WBC 7.6 K/uL (4.8-10.8) 02/17/19 07:45 RBC 4.53 Mil/uL (3.80-5.20) 02/17/19 07:45 Hgb 13.7 g/dL (11.0-16.0) 02/17/19 07:45 Hct 40.5 % (34.0-47.0) 02/17/19 07:45 MCV 89.4 fL (81.0-99.0) 02/17/19 07:45 MCH 30.3 pg (27.0-31.0) 02/17/19 07:45 MCHC 33.8 g/dL (33.0-37.0) 02/17/19 07:45 RDW 13.6 % (11.5-14.5) 02/17/19 07:45 Plt Count 312 K/uL (130-400) 02/17/19 07:45 MPV 9.1 fL (7.2-11.7) 02/17/19 07:45 Neut % (Auto) 48.0 % (50.0-75.0) L 02/17/19 07:45 Lymph % (Auto) 34.3 % (20.0-40.0) 02/17/19 07:45 Crenshaw % (Auto) 13.2 % (0.0-10.0) H 02/17/19 07:45 Eos % (Auto) 3.4 % (0.0-4.0) 02/17/19 07:45 Baso % (Auto) 1.1 % (0.0-2.0) 02/17/19 07:45 Neut # (Auto) 3.7 K/uL (1.8-7.0) 02/17/19 07:45 Lymph # (Auto) 2.6 K/uL (1.0-4.3) 02/17/19 07:45 Crenshaw # (Auto) 1.0 K/uL (0.0-0.8) H 02/17/19 07:45 Eos # (Auto) 0.3 K/uL (0.0-0.7) 02/17/19 07:45 Baso # (Auto) 0.1 K/uL (0.0-0.2) 02/17/19 07:45 Neutrophils % (Manual) 89 % (50-75) H 02/15/19 07:32 Band Neutrophils % 2 % (0-2) 02/14/19 19:01 Lymphocytes % (Manual) 3 % (20-40) L 02/15/19 07:32 Monocytes % (Manual) 8 % (0-10) 02/15/19 07:32 Platelet Estimate Normal (NORMAL) 02/15/19 07:32 pO2 25 mm/Hg (30-55) L 02/14/19 18:30 VBG pH 7.35 (7.32-7.43) 02/14/19 18:30 VBG pCO2 36 mmHg (40-60) L 02/14/19 18:30 VBG HCO3 19.4 mmol/L 02/14/19 18:30 VBG Total CO2 21.0 mmol/L (22-28) L 02/14/19 18:30 VBG O2 Sat (Calc) 52.0 % (40-65) 02/14/19 18:30 VBG Base Excess -5.1 mmol/L (0.0-2.0) L 02/14/19 18:30 VBG Potassium 3.4 mmol/L (3.6-5.2) L 02/14/19 18:30 Sodium 132.0 mmol/l (132-148) 02/14/19 18:30 Chloride 102.0 mmol/L (98-107) 02/14/19 18:30 Glucose 211 mg/dl (65-105) H 02/14/19 18:30 Lactate 1.0 mmol/L (0.7-2.1) 02/14/19 18:30 FiO2 21.0 % 02/14/19 18:30 Sodium 135 mmol/L (132-148) 02/17/19 07:45 Potassium 5.0 mmol/L (3.6-5.2) 02/17/19 07:45 Chloride 104 mmol/L (98-107) 02/17/19 07:45 Carbon Dioxide 26 mmol/L (22-30) 02/17/19 07:45 Anion Gap 11 (10-20) 02/17/19 07:45 BUN 28 mg/dL (7-17) H 02/17/19 07:45 Creatinine 0.6 mg/dL (0.7-1.2) L 02/17/19 07:45 Est GFR ( Amer) > 60 02/17/19 07:45 Est GFR (Non-Af Amer) > 60 02/17/19 07:45 POC Glucose (mg/dL) 192 mg/dL (65-110) H 02/17/19 12:15 Random Glucose 99 mg/dL (65-105) D 02/17/19 07:45 Hemoglobin A1c 8.3 % (4.2-6.5) H 02/15/19 12:55 Calcium 9.3 mg/dl (8.6-10.4) 02/17/19 07:45 Total Bilirubin 0.2 mg/dL (0.2-1.3) 02/16/19 06:23 Direct Bilirubin 0.3 mg/dL (0.0-0.4) 02/15/19 07:32 AST 22 U/L (14-36) 02/16/19 06:23 ALT 20 U/L (9-52) 02/16/19 06:23 Alkaline Phosphatase 83 U/L (38-126) 02/16/19 06:23 Total Protein 6.6 g/dL (6.3-8.3) 02/16/19 06:23 Albumin 3.7 g/dL (3.5-5.0) 02/16/19 06:23 Globulin 2.9 gm/dL (2.2-3.9) 02/16/19 06:23 Albumin/Globulin Ratio 1.3 (1.0-2.1) 02/16/19 06:23 Venous Blood Potassium 3.4 mmol/L (3.6-5.2) L 02/14/19 18:30 - Hospital Course Hospital Course: Patient presented to [facility] emergency room with swelling of the left side of the face. Patient is not completely aware of how it started but apparently there was a small swelling near the left posterior ear which started spreading with some itching and discomfort patient took some Claritin and Benadryl without any improvement and on the day of admission the swelling spread to the left maxillary and left orbital region nonhealing wound in the eyes. There is no history of trauma or any cuts there is no any insect bites or animal bites Patient with history of psych disorder and history of diabetes PT. IMPROVED ON IV AB RXED BY ID CT SINUS NEG PT D/C ON PO MEDS Discharge Exam - Head Exam Head Exam: NORMAL INSPECTION Discharge Plan - Follow Up Plan Condition: FAIR Disposition: HOME/ ROUTINE
--- NOTE | 2019-02-17 14:14 | CARD ---
APPROVED REPORT Date of service: 02/17/2019 EXAM: Two-dimensional and M-mode echocardiogram with Doppler and color Doppler. Other Information Quality : GoodRhythm : INDICATION Infection:Rule out subacute bacterial endocarditis RISK FACTORS Diabetes 2D DIMENSIONS IVSd1.0 (0.7-1.1cm)LVDd3.6 (3.9-5.9cm) PWd1.1 (0.7-1.1cm)LA Qbqdix88 (18-58mL) LVDs2.4 (2.5-4.0cm)FS (%) 33.0 % LVEF (%)62.0 (>50%)LVEF (Loco's)66 % M-Mode DIMENSIONS Left Atrium (MM)3.79 (2.5-4.0cm)IVSd1.02 (0.7-1.1cm) Aortic Root2.87 (2.2-3.7cm)LVDd5.42 (4.0-5.6cm) Aortic Cusp Exc.1.53 (1.5-2.0cm)PWd0.86 (0.7-1.1cm) FS (%) 51 %LVDs2.67 (2.0-3.8cm) LVEF (%)70 (>50%) Mitral Valve MV E Gmzpdpvp897.4cm/sMV A Aeliefmv762.2cm/sE/A ratio1.0 TDI Lateral E' Peak V6.87cm/sMedial E' Peak V7.38cm/sE/Lateral E'17.7 E/Medial E'16.4 Tricuspid Valve TR Peak Xuidqbgs976dn/sTR Peak Gr.98pdDvYCMB51cdNn LEFT VENTRICLE The left ventricle is normal size. There is normal left ventricular wall thickness. The left ventricular function is normal. The left ventricular ejection fraction is within the normal range. No regional wall motion abnormalities noted. Transmitral Doppler flow pattern is Grade II-pseudonormal filling dynamics. LV filling pressure is elevated No left ventricle thrombus noted on this study. There is no ventricular septal defect visualized. There is no left ventricular aneurysm. There is no mass noted in the left ventricle. RIGHT VENTRICLE The right ventricle is normal size. There is normal right ventricular wall thickness. The right ventricular systolic function is normal. ATRIA The left atrium size is normal. The right atrium size is normal. The interatrial septum is intact with no evidence for an atrial septal defect. AORTIC VALVE The aortic valve is normal in structure and function. No aortic regurgitation is present. There is no aortic valvular stenosis. There is no aortic valvular vegetation. MITRAL VALVE The mitral valve is normal in structure and function. There is no evidence of mitral valve prolapse. Mitral regurgitation is mild. TRICUSPID VALVE The tricuspid valve is normal in structure and function. There is mild tricuspid regurgitation. Right ventricular systolic pressure is estimated at less than 30 mmHg. There is no tricuspid valve prolapse or vegetation. There is no tricuspid valve stenosis. PULMONIC VALVE The pulmonary valve is normal in structure and function. There is no pulmonic valvular regurgitation. There is no pulmonic valvular stenosis. GREAT VESSELS The aortic root is normal in size. The ascending aorta is normal in size. The pulmonary artery is normal. The IVC is dilated. PERICARDIAL EFFUSION The pericardium appears normal. There is no pleural effusion. <Conclusion> The left ventricular function is normal. The left ventricular ejection fraction is within the normal range. No regional wall motion abnormalities noted. Transmitral Doppler flow pattern is Grade II-pseudonormal filling dynamics. LV filling pressure is elevated Mitral regurgitation is mild. The IVC is dilated.
--- NOTE | 2019-02-17 14:54 | CP.PCM.PN ---
Subjective - Date & Time of Evaluation Date of Evaluation: 02/17/19 Time of Evaluation: 14:53 - Subjective Subjective: AFEBRILE, IMPROVING FACIAL CELLULITIS. LT PINNA CELLULITIS IMPROVING . DENIES LT EAR PAIN. NO DISCHARGE LT EAR RADIOLOGY REVIEWED. CT SINUSES -VE ABSCESS +VE CELLULITUS CXR NAD. CASE DISCUSSED WITH BRANCH ACCOUNT EXECUTIVE MS MARIA ISABEL FINCH DC ON PO VIBRAMYCIN 100MG PO BID X7DAYS PO BACID 1TAB PO HS X 7 DAYS. F/U WITH PMD NEXT WEEK. Objective - Vital Signs/Intake and Output Vital Signs (last 24 hours): Temp Pulse Resp BP Pulse Ox 98.5 F 70 20 136/65 98 02/17/19 07:47 02/17/19 07:47 02/17/19 07:47 02/17/19 07:47 02/17/19 07:47 Intake and Output: 02/17/19 02/17/19 06:59 18:59 Intake Total 540 Balance 540 - Medications Medications: Current Medications Glipizide (Glucotrol Xl) 10 mg PO BID [facility] Last Admin: 02/17/19 10:05 Dose: 10 mg Heparin Sodium (Porcine) (Heparin) 5,000 units SC Q12 [facility] Last Admin: 02/17/19 10:05 Dose: Not Given Home Med (Patient's Own Medication) 1 tab PO HS [facility] Last Admin: 02/16/19 21:26 Dose: 1 tab Home Med (Patient's Own Medication) 1 tab PO DAILY [facility] Last Admin: 02/17/19 10:08 Dose: 1 tab Ceftriaxone Sodium 1 gm/ (Sodium Chloride) 100 mls @ 100 mls/hr IVPB Q12H [facility]; Protocol Last Admin: 02/17/19 05:44 Dose: 100 mls/hr Vancomycin/Sodium Chloride (Vancomycin 1 Gm/Ns 200 Ml) 1 gm in 200 mls @ 166.7 mls/hr IVPB Q24H [facility]; Protocol Stop: 02/20/19 23:01 Last Admin: 02/16/19 22:05 Dose: 166.7 mls/hr Insulin Human Regular (Novolin R) 0 unit SC ACHS [facility]; Protocol Last Admin: 02/17/19 12:16 Dose: Not Given - Labs Labs: 02/17/19 07:45 02/17/19 07:45 - Constitutional Appears: No Acute Distress - Head Exam Head Exam: NORMAL INSPECTION - Eye Exam Eye Exam: EOMI, PERRL. absent: Conjunctival injection, Periorbital swelling, Periorbital tenderness Additional comments: LT FACE/AND LT EAR PINNA RESOLVING CELLULITUS. NO TENDERNESS PAROTID GLAND LT. - ENT Exam ENT Exam: Normal Oropharynx - Neck Exam Neck Exam: Normal Inspection - Respiratory Exam Respiratory Exam: Clear to Ausculation Bilateral, NORMAL BREATHING PATTERN - Cardiovascular Exam Cardiovascular Exam: REGULAR RHYTHM, +S1, +S2 - GI/Abdominal Exam GI & Abdominal Exam: Soft, Normal Bowel Sounds. absent: Tenderness - Extremities Exam Extremities Exam: Normal Capillary Refill. absent: Calf Tenderness, Pedal Edema - Neurological Exam Neurological Exam: Alert, Awake, CN II-XII Intact, Normal Gait, Oriented x3, Reflexes Normal - Psychiatric Exam Psychiatric exam: Normal Mood - Skin Skin Exam: Normal Color, Warm Assessment and Plan (1) Diffuse cellulitis of face Status: Acute (2) Facial erythema Status: Acute (3) DM (diabetes mellitus) Status: Acute (4) Schizoaffective disorder Status: Acute - Assessment and Plan (Free Text) Plan: PLAN D/C IV ANTIBIOTICS START ON PO VIBRAMYCIN 100MG PO BID X7DAYS PO BACID 1TAB PO HS X 7 DAYS. F/U WITH PMD NEXT WEEK. DISCHARGE PER PMD.
== END 2019-02-17 16:07 | disposition home or self-care (01) | DRG 638 ==
LOC: C.ER 17:00 → C.9E 22:10 → C.3T 22:51
PROVIDERS: ADMIT Internal Medicine Cardiovascular Disease; ATTEND Internal Medicine Cardiovascular Disease
DX: E11.628 Type 2 diabetes mellitus with other skin complications (principal); L03.211 Cellulitis of face; F25.9 Schizoaffective disorder, unspecified; H92.02 Otalgia, left ear; Z79.4 Long term (current) use of insulin